=== PATIENT | male | born 1990 | race Asian ===

== ENCOUNTER 2021-03-23 15:34 | Emergency (ER) | payer BC ==
[2021-03-23 15:39] VITALS: BP 118/77; BMI 24.7
[2021-03-23] MEDS ORDERED: LIDOCAINE HCL 1%, 10 MG/ML (20ML VIAL) ONE (15:42)
[2021-03-23 16:01] VITALS: PULSE 98; TEMP 98.9
[2021-03-23] MEDS ORDERED: LIDOCAINE HCL 1%, 10 MG/ML (50 mL VIAL) SQ ONE (16:12)
== END 2021-03-23 16:25 | disposition home or self-care (01) ==
LOC: FER 15:34
PROC: 0H98XZZ Drainage of Buttock Skin, External Approach (ICD-10-PCS; principal; 2021-03-23)
DX: L02.215 Cutaneous abscess of perineum (principal)
CPT/HCPCS: 87070; 87186; 87205; 99283-25

== ENCOUNTER 2021-03-26 11:20 | Emergency (ER) | payer BC ==
[2021-03-26 11:41] VITALS: BP 130/82; PULSE 94; TEMP 98; BMI 24.7
== END 2021-03-26 11:54 | disposition home or self-care (01) ==
LOC: FER 11:20
DX: Z48.00 Encounter for change or removal of nonsurgical wound dressing (principal)
CPT/HCPCS: 99281-25